=== PATIENT | male | born 2000 | race Caucasian/White ===

== ENCOUNTER 2020-09-09 10:05 | Day surgery (SDC) | payer BC ==
[2020-09-06 10:02] VITALS: BMI 26.6
[~2020-09-09 10:05] MED LIST: LACTATED RINGERS SOLUTION 1,000 ML IV SCH; ONDANSETRON 4 MG/2 ML VIAL IVPUSH PRN; oxyCODONE HCL 5 MG TABLET PO PRN
[2020-09-09] MEDS ORDERED: SODIUM CHLORIDE 0.9% P/F 10 ML VIAL IJ ONE (10:50)
[2020-09-09] MEDS ORDERED: DEXAMETHASONE SOD PHOSPHATE 10 MG/1 ML VIAL ONE (10:50)
[2020-09-09] MEDS ORDERED: MIDAZOLAM HCL 2 MG/2 ML SINGLE DOSE VIAL ONE (10:50)
[2020-09-09] MEDS ORDERED: BUPIVACAINE HCL/PF 0.5% (5 MG/ML) 30 ML VIAL IJ ONE (10:50)
[2020-09-09] MEDS ORDERED: BUPIVACAINE HCL/PF 0.25% (2.5MG/ML) 10 ML VIAL ONE (11:17)
[2020-09-09] MEDS ORDERED: PROPOFOL 20 ML ONE ×3 (12:26→14:41)
[2020-09-09] MEDS ORDERED: ceFAZolin SODIUM 1 GM VIAL ONE (12:35)
[2020-09-09] MEDS ORDERED: ONDANSETRON 4 MG/2 ML VIAL ONE ×3 (12:35→16:42)
[2020-09-09] MEDS ORDERED: KETOROLAC TROMETHAMINE 30 MG/1 ML VIAL ONE (12:35)
[2020-09-09] MEDS ORDERED: DEXAMETHASONE SOD PHOSPHATE 4 MG/1 ML VIAL ONE ×2 (12:35→15:09)
[2020-09-09] MEDS ORDERED: HYDROmorphone HCL/PF 1 MG/ML VIAL ONE ×3 (12:36→14:04)
[2020-09-09] MEDS ORDERED: TRANEXAMIC ACID 1000 MG/10 ML VIAL ONE (12:37)
[2020-09-09 17:02] VITALS: TEMP 96.9
[2020-09-09] MEDS ORDERED: HALOPERIDOL LACTATE 5 MG/ML ONE (17:58)
[2020-09-09 18:22] VITALS: BP 131/76
[2020-09-09 19:04] VITALS: PULSE 66
== END 2020-09-09 19:05 | disposition home or self-care (01) ==
LOC: FASU 10:05
PROVIDERS: ATTEND Orthopaedic Surgery Sports Medicine
PROC: 0MRP47Z Replacement of Left Knee Bursa and Ligament with Autologous Tissue Substitute, Percutaneous Endoscopic Approach (ICD-10-PCS; 2020-09-09)
PROC: 3E0U3GC Introduction of Other Therapeutic Substance into Joints, Percutaneous Approach (ICD-10-PCS; 2020-09-09)
PROC: 0SBD4ZZ Excision of Left Knee Joint, Percutaneous Endoscopic Approach (ICD-10-PCS; principal; 2020-09-09 13:04)
PROC: 0SBD4ZZ Excision of Left Knee Joint, Percutaneous Endoscopic Approach (ICD-10-PCS; 2020-09-09 13:04)
DX: S83.512A Sprain of anterior cruciate ligament of left knee, initial encounter (principal); S83.282A Other tear of lateral meniscus, current injury, left knee, initial encounter; X58.XXXA Exposure to other specified factors, initial encounter; Y93.9 Activity, unspecified; Y92.9 Unspecified place or not applicable; Y99.9 Unspecified external cause status; M65.9 Synovitis and tenosynovitis, unspecified
CPT/HCPCS: 0232T; 20900; 29881; 29888; C1713; 94760; J1100